=== PATIENT | female | born 1965 | race Caucasian/White ===

== ENCOUNTER 2017-09-20 16:47 | Inpatient (IN) | payer MEDICAID ==
[~2017-09-20] VITALS: Ht 152.4 cm; Wt 55.0 kg
[~2017-09-20 16:47] MED LIST: AMO500 PO; BIA500 PO; FER300 PO; LIPI10 PO; METFORMIN HCL500 MG PO; PRI20 PO; VITC PO; ZOF4 PO
[2017-09-20 18:30] LABS: UA SPECIFIC GRAVITY <=1.005 (1.005-1.035); microscopic required? YES; urine erythrocyte 2+ (NEGATIVE)
[2017-09-20 18:40] LABS: BASOPHIL % 0.6 % (0-2); PLATELET COUNT 277 x10^3mcL (130-400)
[2017-09-20 18:41] LABS: CALCIUM 9.3 mg/dL (8.5-10.1); CHLORIDE SERUM 93 mmol/L (98-107); GFR1 > 60 mL/min; POTASSIUM SERUM 4.2 mmol/L (3.5-5.1); SODIUM SERUM 127 mmol/L (136-145)
[2017-09-20 18:43] LABS: ALBUMIN 3.5 g/dL (3.4-5.0); ALKALINE PHOSPHATASE 148 U/L (46-116); ALT/SGPT 21 U/L (14-59); AST/SGOT 14 U/L (15-37); BILIRUBIN TOTAL 0.69 mg/dL (0.20-1.00); CHOLESTEROL 155 mg/dL (<200); CHOLESTEROL/HDL RATIO 4.2; HDL CHOLESTEROL 37 mg/dL (40-60); LIPASE 227 IU/L (73-393)
[2017-09-20 18:45] LABS: TOTAL PROTEIN, SERUM 8.4 g/dL (6.4-8.2); TRIGLYCERIDES 271 mg/dL (<150)
[2017-09-20 19:01] LABS: GLUCOSE SERUM 816 mg/dL (74-106)
[2017-09-20 19:37] LABS: ovalocyte/elliptocyte 1+; rbc morphology (normal/abnorm) ABNORMAL (NORMAL)
[2017-09-20 19:56] LABS: T3 TOTAL 0.88 ng/mL
[2017-09-20 20:32] VITALS: BP 134/69
[2017-09-20 20:32] LABS: MAGNESIUM 2.2 mg/dL (1.8-2.4); PHOSPHOROUS 3.7 mg/dL (2.5-4.9)
[2017-09-20 20:43] LABS: FREE T4 1.51 ng/dL (0.76-1.46)
[2017-09-20 20:45] LABS: AMPHETAMINE QUAL UR NONE DETECTED (NEG <=1000)
[2017-09-20 20:47] VITALS: BP 134/69
[2017-09-20 21:03] LABS: T4(THYROXINE) 10.2 ug/dL (4.7-13.3)
[2017-09-20 23:24] VITALS: BP 121/48
[2017-09-21] VITALS (7 sets, daily range): BP systolic 102–123; BP diastolic 60–85
[2017-09-21 00:33] LABS: CALCIUM 7.5 mg/dL (8.5-10.1); CARBON DIOXIDE 20.3 mmol/L (21-32); CHLORIDE SERUM 107 mmol/L (98-107); CREATININE SERUM 0.6 mg/dL (0.6-1.0); GFR1 > 60 mL/min; GLUCOSE SERUM 137 mg/dL (74-106); MAGNESIUM 1.7 mg/dL (1.8-2.4); PHOSPHOROUS 1.8 mg/dL (2.5-4.9); SODIUM SERUM 139 mmol/L (136-145)
[2017-09-21 00:35] LABS: POTASSIUM SERUM 2.7 mmol/L (3.5-5.1)
[2017-09-21 04:52] LABS: BASOPHIL % 0.8 % (0-2); PLATELET COUNT 185 x10^3mcL (130-400)
[2017-09-21 05:02] LABS: CALCIUM 7.2 mg/dL (8.5-10.1); CARBON DIOXIDE 19.8 mmol/L (21-32); CHLORIDE SERUM 105 mmol/L (98-107); CREATININE SERUM 0.5 mg/dL (0.6-1.0); GFR1 > 60 mL/min; GLUCOSE SERUM 186 mg/dL (74-106); MAGNESIUM 1.5 mg/dL (1.8-2.4); PHOSPHOROUS 2.1 mg/dL (2.5-4.9); SODIUM SERUM 135 mmol/L (136-145)
[2017-09-21 05:04] LABS: POTASSIUM SERUM 2.7 mmol/L (3.5-5.1); RED CELL DISTRIBUTION WIDTH 23.3 % (11.5-14.5)
[2017-09-21 05:23] LABS: ovalocyte/elliptocyte 1+; rbc morphology (normal/abnorm) ABNORMAL (NORMAL); tear drop cell (dacryocyte) 2+
[2017-09-21 08:56] LABS: CALCIUM 7.1 mg/dL (8.5-10.1); CARBON DIOXIDE 19.5 mmol/L (21-32); CHLORIDE SERUM 103 mmol/L (98-107); CREATININE SERUM 0.4 mg/dL (0.6-1.0); GFR1 > 60 mL/min; GLUCOSE SERUM 182 mg/dL (74-106); MAGNESIUM 1.6 mg/dL (1.8-2.4); PHOSPHOROUS 1.8 mg/dL (2.5-4.9); SODIUM SERUM 134 mmol/L (136-145)
[2017-09-21 08:58] LABS: POTASSIUM SERUM 2.9 mmol/L (3.5-5.1)
[2017-09-21 10:00] LABS: RED BLOOD CELLS 2.88 M/mm3 (4.10-5.10)
[2017-09-21 10:08] LABS: IRON 28 ug/dL (50-170); TOTAL IRON BINDING CAPACITY 306 ug/dL (250-450)
[2017-09-21 13:15] LABS: BASOPHIL % 0.5 % (0-2); PLATELET COUNT 201 x10^3mcL (130-400)
[2017-09-21 13:19] LABS: RED CELL DISTRIBUTION WIDTH 27.6 % (11.5-14.5)
[2017-09-21 13:32] LABS: CALCIUM 7.4 mg/dL (8.5-10.1); CHLORIDE SERUM 103 mmol/L (98-107); CREATININE SERUM 0.5 mg/dL (0.6-1.0); GFR1 > 60 mL/min; GLUCOSE SERUM 170 mg/dL (74-106); MAGNESIUM 2.7 mg/dL (1.8-2.4); PHOSPHOROUS 2.3 mg/dL (2.5-4.9); POTASSIUM SERUM 3.4 mmol/L (3.5-5.1); SODIUM SERUM 133 mmol/L (136-145)
[2017-09-21 13:58] LABS: rbc morphology (normal/abnorm) ABNORMAL (NORMAL)
[2017-09-22 06:16] VITALS: BP 101/61
[2017-09-22 06:37] LABS: BASOPHIL % 0.5 % (0-2); PLATELET COUNT 155 x10^3mcL (130-400)
[2017-09-22 06:48] LABS: CALCIUM 7.7 mg/dL (8.5-10.1); CARBON DIOXIDE 20.6 mmol/L (21-32); CHLORIDE SERUM 105 mmol/L (98-107); CREATININE SERUM 0.5 mg/dL (0.6-1.0); GFR1 > 60 mL/min; GLUCOSE SERUM 244 mg/dL (74-106); MAGNESIUM 1.9 mg/dL (1.8-2.4); PHOSPHOROUS 3.2 mg/dL (2.5-4.9); POTASSIUM SERUM 3.7 mmol/L (3.5-5.1); SODIUM SERUM 136 mmol/L (136-145)
[2017-09-22 06:55] LABS: RED CELL DISTRIBUTION WIDTH 26.3 % (11.5-14.5)
[2017-09-22 06:57] LABS: rbc morphology (normal/abnorm) ABNORMAL (NORMAL)
[2017-09-22 08:39] VITALS: BP 95/59
[2017-09-22 08:49] VITALS: Ht 152.4 cm; Wt 55.0 kg
[2017-09-22 12:30] VITALS: BP 104/63
[2017-09-22 14:50] LABS: BASOPHIL % 0.6 % (0-2); PLATELET COUNT 163 x10^3mcL (130-400)
[2017-09-22 14:54] LABS: RED CELL DISTRIBUTION WIDTH 27.1 % (11.5-14.5)
[2017-09-22 15:11] LABS: rbc morphology (normal/abnorm) ABNORMAL (NORMAL)
[2017-09-22 16:49] VITALS: BP 101/51
[2017-09-22 21:04] VITALS: BP 107/65
[2017-09-23 05:30] VITALS: BP 111/67
[2017-09-23 06:10] LABS: BASOPHIL % 0.8 % (0-2); PLATELET COUNT 178 x10^3mcL (130-400)
[2017-09-23 06:25] LABS: CALCIUM 8.3 mg/dL (8.5-10.1); CHLORIDE SERUM 105 mmol/L (98-107); CREATININE SERUM 0.5 mg/dL (0.6-1.0); GFR1 > 60 mL/min; GLUCOSE SERUM 261 mg/dL (74-106); MAGNESIUM 1.7 mg/dL (1.8-2.4); PHOSPHOROUS 4.4 mg/dL (2.5-4.9); POTASSIUM SERUM 3.7 mmol/L (3.5-5.1); SODIUM SERUM 139 mmol/L (136-145)
[2017-09-23 08:03] LABS: RED CELL DISTRIBUTION WIDTH 28.4 % (11.5-14.5)
[2017-09-23 08:07] LABS: rbc morphology (normal/abnorm) ABNORMAL (NORMAL)
[2017-09-23 09:35] VITALS: BP 112/71
[2017-09-23 13:00] VITALS: BP 122/74
[2017-09-23] MEDS ORDERED: GLU5 PO (13:14)
[2017-09-23 13:17] VITALS: BP 112/71
== END 2017-09-23 15:04 | disposition home or self-care (01) | DRG 420 ==
LOC: ED 16:47 → DU 19:26 → IC 19:26 → DU 20:23 → IC 21:05 → DU 09-21 16:44
PROVIDERS: Family Medicine; Specialist; Student in an Organized Health Care Education/Training Program
PROC: 02HV33Z Insertion of Infusion Device into Superior Vena Cava, Percutaneous Approach (ICD-10-PCS; principal; 2017-09-21)
PROC: B548ZZA Ultrasonography of Superior Vena Cava, Guidance (ICD-10-PCS; 2017-09-21)
DX: E11.10 Type 2 diabetes mellitus with ketoacidosis without coma (principal); N17.0 Acute kidney failure with tubular necrosis; E83.39 Other disorders of phosphorus metabolism; E87.1 Hypo-osmolality and hyponatremia; E86.0 Dehydration; D64.9 Anemia, unspecified; D25.9 Leiomyoma of uterus, unspecified; Z83.3 Family history of diabetes mellitus; N93.8 Other specified abnormal uterine and vaginal bleeding; R31.9 Hematuria, unspecified; E87.6 Hypokalemia; E83.51 Hypocalcemia; E78.2 Mixed hyperlipidemia; Z91.19 Patient's noncompliance with other medical treatment and regimen; N88.8 Other specified noninflammatory disorders of cervix uteri
CPT/HCPCS: 36556; 36600; 82962; 83880; 84439; J0610; J0696; J1642; J1815; J1940; J2060; J2270; J2405; J2916; J3475; J3480; J3490; J7030; J7050; P9016; Q0092; Q0163

== ENCOUNTER 2019-12-05 14:34 | Emergency (ER) | payer MEDICAID ==
[~2019-12-05] VITALS: Ht 152.4 cm; Wt 54.9 kg
[~2019-12-05 14:34] MED LIST changes: +GLU5 PO
[2019-12-05 14:44] VITALS: Ht 152.4 cm; Wt 54.9 kg
[2019-12-05 15:11] VITALS: BP 134/72
== END 2019-12-05 15:11 | disposition home or self-care (01) ==
LOC: ED 14:34
DX: R68.84 Jaw pain (principal); E11.9 Type 2 diabetes mellitus without complications